=== PATIENT | female | born 1950 ===

== ENCOUNTER 2021-08-31 06:00 | Outpatient (RCR) | payer MEDICARE, SELFPAY | END 2021-09-17 23:59 | disposition home or self-care (01) | LOC: SPT 06:00 | PROVIDERS: Referring Provider Internal Medicine; Visit Provider Internal Medicine | DX: M54.50 Low back pain, unspecified (principal) | CPT/HCPCS: 97110; 97163 ==

== ENCOUNTER 2021-09-18 06:00 | Outpatient (RCR) | payer MEDICARE, SELFPAY | END 2021-10-18 23:59 | disposition home or self-care (01) | LOC: SPT 06:00 | PROVIDERS: Referring Provider Internal Medicine; Visit Provider Internal Medicine | DX: M54.50 Low back pain, unspecified (principal) | CPT/HCPCS: 97110; 97164 ==

== ENCOUNTER 2021-10-19 06:00 | Outpatient (RCR) | payer MEDICARE, SELFPAY | END 2021-11-15 23:59 | disposition home or self-care (01) | LOC: SPT 06:00 | PROVIDERS: Referring Provider Internal Medicine; Visit Provider Internal Medicine | DX: M54.50 Low back pain, unspecified (principal) | CPT/HCPCS: 97110 ==

== ENCOUNTER 2021-11-16 06:00 | Outpatient (RCR) | payer MEDICARE, SELFPAY | END 2021-11-17 23:59 | disposition home or self-care (01) | LOC: SPT 06:00 | PROVIDERS: Referring Provider Internal Medicine; Visit Provider Internal Medicine | DX: M54.50 Low back pain, unspecified (principal) | CPT/HCPCS: 97110 ==